=== PATIENT | male | born 1965 | race African-American/Black ===

== ENCOUNTER → 2019-01-07 | Outpatient (CLI) | payer BC ==
--- NOTE | 2019-01-07 09:19 | XR ---
EXAMINATION TYPE: XR chest 2V DATE OF EXAM: 01/07/2019 COMPARISON: 04/17/2016 HISTORY: Cough TECHNIQUE: Frontal and lateral views of the chest are obtained. FINDINGS: There is no focal air space opacity, pleural effusion, or pneumothorax seen. There is new mild peribronchial cuffing on the lateral view There is slight right hemidiaphragm eventration unchan ged from 2016. The cardiac silhouette size is within normal limits. The osseous structures are inta ct. Minimal multilevel degenerative changes of the thoracic spine are seen. Vertebral body heights ar e unchanged from 2016. IMPRESSION: No focal consolidation to suggest pneumonia. New mild peribronchial cuffing on the later al view may relate to reactive or infectious airway disease such as bronchitis.
== END | disposition home or self-care (01) ==
LOC: RADXRMAIN 08:49
PROVIDERS: ATTEND Internal Medicine
DX: R91.8 Other nonspecific abnormal finding of lung field (principal); R05 Cough
CPT/HCPCS: 71046

== ENCOUNTER → 2019-01-19 | Outpatient (CLI) | payer BC ==
--- NOTE | 2019-01-19 16:44 | US ---
EXAMINATION TYPE: US kidneys/renal and bladder DATE OF EXAM: 01/19/2019 COMPARISON: US from 2011 CLINICAL HISTORY: R94.4 Abn results kidney function studies. EXAM MEASUREMENTS: Right Kidney: 9.9 x 4.6 x 4.9 cm Left Kidney: 11.4 x 5.5 x 6.1 cm There is no ascites. Right Kidney: No hydronephrosis, anechoic focus measuring 8 mm at the inferior pole shows increased t hrough transmission and imperceptible wall compatible with probable simple cyst. Left Kidney: Technologist notes hypoechoic area in the upper pole of the left kidney which shows a si milar appearance to prior exam on the provided images. Bladder: wnl Bilateral Jets seen: Yes There is no evidence for hydronephrosis at this point in time. No nephrolithiasis is seen. The urina ry bladder is anechoic. Bilateral ureteral jets are seen. IMPRESSION: Hypoechoic area at the upper pole of left kidney may represent normal tissue rather than mass. Contra st-enhanced CT or MRI could be performed for additional evaluation or alternatively consider short in terval follow-up ultrasound to assess for stability.
== END | disposition home or self-care (01) ==
LOC: RADUSWWP 15:41
PROVIDERS: ATTEND Internal Medicine
DX: R94.4 Abnormal results of kidney function studies (principal)
CPT/HCPCS: 76770

== ENCOUNTER → 2019-02-04 | Outpatient (CLI) | payer BC ==
--- NOTE | 2019-02-04 21:35 | CT ---
EXAMINATION TYPE: CT urogram wo/w con DATE OF EXAM: 02/04/2019 COMPARISON: Ultrasound 01/19/2019 HISTORY: abnormal findings on renal US CT DLP: 2590 mGycm, Automated Exposure Control for Dose Reduction was Utilized. CONTRAST: CT scan of the abdomen and pelvis is performed with oral and with IV Contrast, patient injected with 100 mL of Isovue 300. FINDINGS: LUNG BASES: Subsegmental changes suggestive of atelectasis.. LIVER/GB: No significant abnormality is appreciated. PANCREAS: No significant abnormality is seen. SPLEEN: No significant abnormality is seen. ADRENALS: No significant abnormality is seen. KIDNEYS: No evidence of renal stone or hydronephrosis. No suspicious renal mass. There is a less than 1 cm hypodense lesion midpole right kidney too small to characterize. Left kidney normal. Bladder de monstrates mild wall thickening which may represent mild chronic cystitis or be related to incomplete distention correlate clinically. No filling defects seen within the collecting system or visualized portion of the ureters.. BOWEL: No significant abnormality is seen. LYMPH NODES: No greater than 1cm abdominal or pelvic lymph nodes are appreciated. OSSEOUS STRUCTURES: Hypertrophic and degenerative change of the spine. OTHER: Fat-containing periumbilical hernia. Aorta of normal caliber with mild atherosclerotic change. . Bilateral fat-containing inguinal hernia. IMPRESSION: 1. No evidence of left renal mass. There is a small less than 1 cm hypodense lesion in the right kidn ey too small to characterize. Most likely on the basis of the small cyst and could be followed up on a 6 month basis as clinically warranted.. 2. Small periumbilical fat-containing hernia. 3. There is mild concentric thickening of the wall the bladder which may be related to incomplete dis tention rather than cystitis correlate clinically. Prostate gland also appears to be mildly prominent correlate clinically and with PSA as clinically warranted..
== END | disposition home or self-care (01) ==
LOC: RADCTMAIN 16:23
PROVIDERS: ATTEND Internal Medicine Geriatric Medicine
DX: N28.89 Other specified disorders of kidney and ureter (principal); K42.9 Umbilical hernia without obstruction or gangrene
CPT/HCPCS: 74178; 74400; Q9967

== ENCOUNTER → 2022-08-20 | Outpatient (CLI) | payer BC ==
[2022-08-20 14:14] LABS: Basophils # (A) 0.03 X 10*3/uL (0.00-0.10); Basophils % (A) 0.6 %; Eosinophils # (A) 0.28 X 10*3/uL (0.04-0.35); Eosinophils % (A) 5.4 %; HCT 47.8 % (39.6-50.0); HGB 15.3 g/dL (13.0-17.0); Immature Grans, Automated 0.2 %; Lymphocytes # (A) 2.27 X 10*3/uL (0.90-5.00); MCH 26.4 pg (27.0-32.0); MCV 82.6 fL (80.0-97.0); Mean Platelet Volume 10.7 fL (9.5-12.2); Monocytes # (A) 0.38 X 10*3/uL (0.20-1.00); Monocytes % (A) 7.4 %; NRBC Per 100 WBC 0 /100 WBCS (0.0-0.0); Neutrophils # (A) 2.19 X 10*3/uL (1.80-7.70); Neutrophils % (A) 42.4 %; Platelet Count 217 X 10*3/uL (140-440); RBC 5.79 X 10*6/uL (4.40-5.60); RDW 12.7 % (11.5-14.5); WBC 5.16 X 10*3/uL (4.50-10.00)
[2022-08-20 14:51] LABS: ALT 28 U/L (10-49); AST 22 U/L (14-35); African American GFR (CKD) 78.1 (60.0-200.0); Albumin 4.4 g/dL (3.8-4.9); Albumin/Globulin Ratio 2.09 (1.60-3.17); Alkaline Phosphatase 87 U/L (41-126); Blood Urea Nitrogen 11.9 mg/dL (9.0-27.0); Calcium 9.1 mg/dL (8.7-10.3); Carbon Dioxide 26.4 mmol/L (20.0-27.5); Chloride 102 mmol/L (96-109); Chol/HDL Ratio 3.45 Ratio; Globulin 2.1 g/dL (1.6-3.3); Glucose 106 mg/dL (70-110); LDL Cholesterol,Calculated 108.5 mg/dL (0.0-131.0); Non-African American GFR(CKD) 67.4 (60.0-200.0); Potassium 3.7 mmol/L (3.5-5.5); Sodium 138 mmol/L (135-145); Total Protein 6.5 g/dL (6.2-8.2)
== END | disposition home or self-care (01) ==
LOC: LABWHC1 09:56
PROVIDERS: ATTEND Nurse Practitioner Family
DX: I10 Essential (primary) hypertension (principal); N40.1 Benign prostatic hyperplasia with lower urinary tract symptoms; E07.9 Disorder of thyroid, unspecified; R73.9 Hyperglycemia, unspecified
CPT/HCPCS: 36415; 80053; 80061; 83036; 84153; 84439; 84443; 85025

== ENCOUNTER → 2023-04-10 | Outpatient (CLI) | payer BC ==
--- NOTE | 2023-04-10 17:13 | P.PN ---
Subjective DATE: 04/10/2023 FOLLOW UP VISIT. Patient with obstructive sleep apnea hypopnea syndrome return to sleep center for follow-up visit. Recently patient had sleep study which documented obstructive sleep apnea hypopnea syndrome. Patient was initiated on PAP therapy and today is first visit after treatment was started. Patient was able to use PAP equipment every night for the whole night. I explained results of sleep studies to the patient in details Patient feels some discomfort related to the pressure. Looks like at the beginning cold the night pressure stool and in the middle of the night pressure is too high. Keyes sleepiness scale is increased to 11. I checked information from PAP unit. PAP unit pressure 5-10, average 8.9 cm H2O. Usage is 27% and 20 % for more then 4 hours, average 4.5 hours per night. Leak is 2.7 l/m, which is in acceptable range. Apnea Hypopnea Index is 5.5, which is normal. MEDICATIONS:1. Nifedioine 50 pain 90 mg once a day 2. Carvedilol 12.5 mg twice a day 3. Chlorthalidone 25 mg once a day 4. Atorvastatin 10 mg once a day During physical exam: GENERAL: A pleasant patient without any distress. VITAL SIGNS: BP 151/93, HR 64, RR 12 , weight 219.8, temperature 98.4, oxygen saturation at room air 96% . HEENT: PERRLA, EOMI.low position of soft palate, Mallapati 4 . NECK: Supple. No JVD. LUNGS: Clear to percussion and to auscultation. Good air exchange. No wheezing or rhonchi. HEART: S1, S2 regular. ABDOMEN: Soft and nontender.[] EXTREMITIES: No clubbing or cyanosis. BLOOD BANK ORDER CONTROL CLERK: Awake, alert, and oriented x3. No focal deficit. Impressions: 1. Obstructive sleep apnea-hypopnea syndrome. Patient has difficulties with the usage of CPAP equipment. 2. Hypertension. 3. History of psychophysiological insomnia. 4. Hyperlipidemia. 5. History of chest pain episodes, cardiac workup was negative. 6. Status post left knee surgery for torn meniscus. Ramp was off, I increased it started at 6 cm of water instead of 4 cm of water in Auto regimen. EPR I changed to the level of 3, it was at the level of 0. Plan: 1. Continue using PAP equipment every night for the whole night. We will extend trile period for another 90 days. 2. To change air filter at least 1-2 times per month. 3. PAP unit should stay lower then position of the head. 4. Advised patient to remove all remaining water from humidifier canister daily and make it dry after each usage. Refill canister with fresh distilled water before each usage. 5. Sleep hygiene with regular time in bed for at least 8 hours. 6. Precautions related to driving. No driving if feel any sleepiness. 7. I will maintain prescription for PAP supplies including mask, tube, filters. 8. Follow up visit in 6 months or earlier if patient has any problems. 9. Watching weight. Thank you very much for allowing me to participate in the management of your patient. Hamzah Pearson MD, PhD, FAASM. Diplomat of [place] [employer], Sleep Medicine Board by [place] [employer] Multimedia Manager of [facility] [place]
== END ==
LOC: 3 N SLEEP 15:55
PROVIDERS: ATTEND Internal Medicine
DX: G47.33 Obstructive sleep apnea (adult) (pediatric) (principal); I10 Essential (primary) hypertension; F51.04 Psychophysiologic insomnia; E78.5 Hyperlipidemia, unspecified; Z79.899 Other long term (current) drug therapy; Z98.890 Other specified postprocedural states; Z99.89 Dependence on other enabling machines and devices
CPT/HCPCS: 99212

== ENCOUNTER → 2023-07-04 | Outpatient (CLI) | payer BC ==
--- NOTE | 2023-07-04 16:25 | P.PN ---
Subjective DATE: 07/04/2023 FOLLOW UP VISIT. Patient with obstructive sleep apnea hypopnea syndrome return to sleep center for follow-up visit. Information from previous visit have been reviewed. Patient is using PAP equipment every night for the whole night now. The patient does not have significant problems with PAP unit and humidification. [place] sleepiness scale is increased to 15. I checked information from PAP unit. PAP unit pressure 6-10, average 9.4 cm H2O. Usage is 90% and 83 % for more then 4 hours, average 5-3/4 hours per night. Leak is 2.0 l/m, which is in perfect range. Apnea Hypopnea Index is 4.7, which is normal. MEDICATIONS:1. Carvedilol 12.5 mg twice a day 2. Chlorthalidone 25 mg once a day 3. Atorvastatin 10 mg once a day 4. Nifedipine once a day During physical exam: GENERAL: A pleasant patient without any distress. VITAL SIGNS: BP 175/93, HR 75, RR 16 , weight 220.4, temperature 98.2, oxygen saturation at room air 96 % . HEENT: PERRLA, EOMI.low position of soft palate, Mallapati 4 . NECK: Supple. No JVD. LUNGS: Clear to percussion and to auscultation. Good air exchange. No wheezing or rhonchi. HEART: S1, S2 regular. ABDOMEN: Soft and nontender.[] EXTREMITIES: No clubbing or cyanosis. IT ARCHITECTURE CONSULTANT: Awake, alert, and oriented x3. No focal deficit. Impressions: 1. Obstructive sleep apnea-hypopnea syndrome. Patient demonstrated good compliance with treatment, benefiting from treatment. 2. Hypertension. 3. Hyperlipidemia. 4. Status post left knee surgery for torn meniscus. 5. History of chest pain episodes in the past, cardiac workup at that time was negative. 6. Patient continued to feel sleepiness during the day, [place] Sleepiness Scale increased to 15. We may consider multiple sleep latency test if patient will continue to feel sleepiness. Plan: 1. Continue using PAP equipment every night for the whole night. 2. To change air filter at least 1-2 times per month. 3. PAP unit should stay lower then position of the head. 4. Advised patient to remove all remaining water from humidifier canister daily and make it dry after each usage. Refill canister with fresh distilled water before each usage. 5. Sleep hygiene with regular time in bed for at least 8 hours. 6. Precautions related to driving. No driving if feel any sleepiness. 7. I will maintain prescription for PAP supplies including mask, tube, filters. 8. Watching weight. 9. Follow up visit in 6 months or earlier if patient has any problems. Thank you very much for allowing me to participate in the management of your patient. Hamzah Pearson MD, PhD, FAASM. Diplomat of [place] [employer], Sleep Medicine Board by [place] [employer] Aircraft Inspection Record Clerk of [facility] [place]
== END ==
LOC: 3 N SLEEP 15:43
PROVIDERS: ATTEND Internal Medicine
DX: S83.207S Unspecified tear of unspecified meniscus, current injury, left knee, sequela (principal); G47.33 Obstructive sleep apnea (adult) (pediatric); E78.5 Hyperlipidemia, unspecified; I10 Essential (primary) hypertension; Z99.89 Dependence on other enabling machines and devices; Z79.899 Other long term (current) drug therapy; Z98.890 Other specified postprocedural states; Z79.82 Long term (current) use of aspirin
CPT/HCPCS: 99212

== ENCOUNTER → 2023-11-16 | Outpatient (CLI) | payer BC ==
[2023-11-16 22:51] LABS: Basophils # (A) 0.03 X 10*3/uL (0.00-0.10); Basophils % (A) 0.7 %; Eosinophils # (A) 0.27 X 10*3/uL (0.04-0.35); HCT 45.4 % (39.6-50.0); HGB 14.5 g/dL (13.0-17.0); Lymphocytes # (A) 2.17 X 10*3/uL (0.90-5.00); Lymphocytes % (A) 48.3 %; MCH 26.7 pg (27.0-32.0); MCHC 31.9 g/dL (32.0-37.0); MCV 83.5 FL (80.0-97.0); Mean Platelet Volume 10.9 FL (9.5-12.2); Monocytes # (A) 0.41 X 10*3/uL (0.20-1.00); Monocytes % (A) 9.1 %; NRBC Per 100 WBC 0 X 10*3/uL (0.00-0.01); Neutrophils % (A) 35.7 %; Platelet Count 198 X 10*3/uL (140-440); RBC 5.44 X 10*6/uL (4.40-5.60); WBC 4.49 X 10*3/uL (4.50-10.00)
[2023-11-16 23:39] LABS: BUN/Creat Ratio 12.23 Ratio (12.00-20.00); Blood Urea Nitrogen 15.9 mg/dL (9.0-27.0); Chol/HDL Ratio 3.41 Ratio; Glucose 98 mg/dL (70-110)
[2023-11-16 23:40] LABS: ALT 25 U/L (10-49); AST 17 U/L (14-35); Albumin 4.4 g/dL (3.8-4.9); Albumin/Globulin Ratio 2.32 Ratio (1.60-3.17); Alkaline Phosphatase 81 U/L (41-126); Calcium 9.7 mg/dL (8.7-10.3); Carbon Dioxide 29.3 mmol/L (21.6-31.8); Chloride 103 mmol/L (96-109); Globulin 1.9 g/dL (1.6-3.3); Potassium 3.8 mmol/L (3.5-5.5); Prostate Specific Antigen 0.98 ng/mL (0.000-3.500); Sodium 143 mmol/L (135-145); T4, Free (Free Thyroxine) 1.42 ng/dL (0.80-1.80); Total Bilirubin 0.7 mg/dL (0.3-1.2); Total Protein 6.3 g/dL (6.2-8.2)
== END | disposition home or self-care (01) ==
LOC: LABWHC1 09:13
PROVIDERS: ATTEND Internal Medicine Geriatric Medicine
DX: N18.31 Chronic kidney disease, stage 3a (principal); I25.119 Atherosclerotic heart disease of native coronary artery with unspecified angina pectoris; R73.9 Hyperglycemia, unspecified; N40.1 Benign prostatic hyperplasia with lower urinary tract symptoms; E07.9 Disorder of thyroid, unspecified
CPT/HCPCS: 36415; 80053; 80061; 83036; 84153; 84439; 84443; 84550; 85025

== ENCOUNTER → 2024-11-21 | Outpatient (CLI) | payer BC ==
[2024-11-22 06:27] LABS: Basophils # (A) 0.05 X 10*3/uL (0.00-0.10); Eosinophils # (A) 0.32 X 10*3/uL (0.04-0.35); Eosinophils % (A) 6.2 %; HGB 14.2 g/dL (13.0-17.0); Lymphocytes # (A) 2.42 X 10*3/uL (0.90-5.00); MCH 26.2 pg (27.0-32.0); MCHC 32.3 g/dL (32.0-37.0); MCV 81.2 FL (80.0-97.0); Mean Platelet Volume 10.7 FL (9.5-12.2); Monocytes # (A) 0.41 X 10*3/uL (0.20-1.00); NRBC Per 100 WBC 0 X 10*3/uL (0.00-0.01); Neutrophils # (A) 1.94 X 10*3/uL (1.80-7.70); Neutrophils % (A) 37.6 %; Platelet Count 188 X 10*3/uL (140-440); RBC 5.42 X 10*6/uL (4.40-5.60); RDW 12.9 % (11.5-14.5); WBC 5.15 X 10*3/uL (4.50-10.00)
[2024-11-22 07:24] LABS: Erythrocyte Sedimentation Rate 10 mm/Hr (0-20)
[2024-11-22 10:01] LABS: BUN/Creat Ratio 14.77 Ratio (12.00-20.00); Blood Urea Nitrogen 19.2 mg/dL (9.0-27.0); C Reactive Protein <0.30 mg/dL (0.00-0.80); Chloride 109 mmol/L (96-109); Chol/HDL Ratio 3.18 Ratio; Glucose 101 mg/dL (70-110); LDL Cholesterol,Calculated 81.6 mg/dL (0.0-131.0); Potassium 3.6 mmol/L (3.5-5.5); Sodium 148 mmol/L (135-145); Uric Acid 7.7 mg/dL (3.7-8.7)
[2024-11-22 10:02] LABS: ALT 22 U/L (10-49); AST 20 U/L (14-35); Albumin 4.2 g/dL (3.8-4.9); Albumin/Globulin Ratio 2.33 Ratio (1.60-3.17); Alkaline Phosphatase 75 U/L (41-126); Calcium 9.2 mg/dL (8.7-10.3); Carbon Dioxide 28.5 mmol/L (21.6-31.8); Globulin 1.8 g/dL (1.6-3.3); Prostate Specific Antigen 1.14 ng/mL (0.000-3.500); Rheumatoid Factor, Qnt <15 IU/mL (0-15); Total Bilirubin 0.8 mg/dL (0.3-1.2)
== END | disposition home or self-care (01) ==
LOC: LABWHC1 11:44
PROVIDERS: ATTEND Internal Medicine Geriatric Medicine
DX: I25.119 Atherosclerotic heart disease of native coronary artery with unspecified angina pectoris (principal); M19.90 Unspecified osteoarthritis, unspecified site; N40.1 Benign prostatic hyperplasia with lower urinary tract symptoms; N18.31 Chronic kidney disease, stage 3a; R73.9 Hyperglycemia, unspecified
CPT/HCPCS: 36415; 80053; 80061; 83036; 84153; 84443; 84550; 85025; 85652; 86140; 86431